=== PATIENT | female | born 1950 | race Caucasian/White ===

== ENCOUNTER 2019-11-20 10:30 | Emergency (ER) | payer MEDICARE, OTHER ==
[~2019-11-20] VITALS: Ht 165.1 cm; Wt 65.8 kg
--- OUTSIDE RECORDS SUMMARY | 2019-11-20 10:31 | XMS REPORT ---
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 Allergies, Adverse Reactions, Alerts This patient has no known allergies or adverse reactions. Medications This patient has no known medications. Encounters Start Date/Time End Date/Time Encounter Type Admission Type Attending Clinicians Care Facility Care Department Encounter ID 2019-01-28 15:51:12 Outpatient [id number] 2019-04-19 07:13:00 2019-04-19 07:13:00 Outpatient [facility] [id number] 2019-03-22 08:31:00 2019-03-22 08:31:00 Outpatient [id number]
--- OUTSIDE RECORDS SUMMARY | 2019-11-20 10:32 | XMS REPORT | Summary of Care ---
Author Author DAVID SKINNER M.D. Organization Unknown Address [facility] Phone Unavailable Care Team Providers Care Summer Intern Name Role Phone DAVID SKINNER M.D. Unavailable Unavailable Alma Ivan M.A. 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 Quantity: 14 DAVID SKINNER M.D. * Start : 06-Aug-2019 Active Fluticasone Propionate 50 MCG/ACT Nasal Suspension USE 2 SPRAYS IN EACH NOSTRIL ONCE DAILY * Quantity: 1 Refills: 6 DAVID SKINNER M.D. * Start : 06-Aug-2019 Active 9.9 ML Bottle Allergies and Adverse Reactions Name Dates Details Erythromycin Derivatives (Allergy) Status: Active Past Medical History Name Dates Details History of malignant neoplasm of breast (V10.3, Z85.3) Status: Resolved Procedures Procedure Dates Details History of Anastomosis Of Gallbladder Completed History of Sinus Surgery Completed Immunization Name Dates Details Immunizations not documented Family History Name Dates Details No pertinent family history (V49.89, Z78.9) Comments: Other Status: Active Social History Name Dates Details - Status: Name Dates Details Never smoker Vital Signs Date Test Result Details [id number] BP Systolic 116 mm[Hg] Status: BP Diastolic 78 mm[Hg] Status: Height 60 in Status: Weight 144.125 lb Status: Body Mass Index Calculated 28.15 kg/m2 Status: Body Surface Area Calculated 1.62 m2 Status: Heart Rate 86 /min Status: Results Date Description Value Details Results not documented Plan of Care Name Dates Details Planned Observations Planned Goals not documented Interventions Provided Medication Changes* levoFLOXacin 500 MG Oral Tablet - Renew Instructions Name Dates Details Instructions not documented Encounters Appointment; ELIDIA MALIK DPM Encounter Diagnosis: Problem not documented On: 22-Oct-2017 14:00 Appointment; DAVID SKINNER M.D. Encounter Diagnosis: Problem not documented On: 06-Aug-2019 14:45
[2019-11-20] MEDS ORDERED: ATENOLOL50 MG (10:43)
[2019-11-20] MEDS ORDERED: LOSARTAN POTAS100 MG PO (10:43)
[2019-11-20] MEDS ORDERED: HYDROCHLOROTHIA25 MG PO (10:43)
[2019-11-20] MEDS ORDERED: DEXAMETHASONE SOD PHOS 10 MG/1 ML VIAL IM ONE (10:45)
[2019-11-20] MEDS ORDERED: ACETAMINOPHEN 325 MG TAB PO ONE (10:45)
--- NOTE | 2019-11-20 11:20 | Diagnostic Imaging Report ---
LEFT KNEE X-RAY - 2 VIEWS HISTORY: ^acute pain, trauma ^[id number] ^[id number] COMPARISON: None available. FINDINGS: Bones: No acute displaced fracture. Osseous alignment is within normal limits. Joints: The joint spaces are well-maintained. Soft tissues: Mild fat stranding along the course of the lateral collateral ligament. IMPRESSION: Mild fat stranding within the lateral aspect of the knee may reflect edema or inflammation. Otherwise, no acute fractures. Signed by: Dr. Radha Jones M.D. on 11/20/2019 11:17 AM
== END 2019-11-20 11:38 | disposition home or self-care (01) ==
LOC: FSED 10:30
DX: S83.412A Sprain of medial collateral ligament of left knee, initial encounter (principal); X50.1XXA Overexertion from prolonged static or awkward postures, initial encounter; Y93.89 Activity, other specified; M17.12 Unilateral primary osteoarthritis, left knee
CPT/HCPCS: 73560; 99283; J1100

== ENCOUNTER 2021-02-14 16:00 | Outpatient (RCR) | payer MEDICARE ==
[~2021-02-14 16:00] MED LIST: ATENOLOL50 MG; HYDROCHLOROTHIA25 MG PO; LOSARTAN POTAS100 MG PO
== END 2021-02-21 ==
LOC: PT 16:00
PROVIDERS: ATTEND Specialist
DX: M22.41 Chondromalacia patellae, right knee (principal); M22.42 Chondromalacia patellae, left knee; M22.2X1 Patellofemoral disorders, right knee; M22.2X2 Patellofemoral disorders, left knee

== ENCOUNTER 2021-03-07 09:14 | Outpatient (RCR) | payer MEDICARE | END 2021-03-24 | LOC: PT 09:14 | PROVIDERS: ATTEND Specialist | DX: M22.41 Chondromalacia patellae, right knee (principal); M22.42 Chondromalacia patellae, left knee; M22.2X1 Patellofemoral disorders, right knee; M22.2X2 Patellofemoral disorders, left knee | CPT/HCPCS: 97139 ==

== ENCOUNTER 2022-09-08 12:46 | Emergency (ER) | payer MEDICARE ==
[~2022-09-08] VITALS: Ht 152.4 cm; Wt 64.4 kg
[2022-09-08] MEDS ORDERED: KETOROLAC TROMETHAMINE 30 MG/ML VIAL IM STA (13:34)
[2022-09-08] MEDS ORDERED: ACETAMINOPHEN-1 EAC4 PO ×2 (13:40→14:47)
[2022-09-08] MEDS ORDERED: IBUPROFEN600 MG PO ×2 (13:40→14:47)
[2022-09-08] MEDS ORDERED: KETOROLAC TROMETHAMINE 30 MG/ML VIAL ONE (14:00)
== END 2022-09-08 14:20 | disposition home or self-care (01) ==
LOC: EDBD 12:46 → FSED 13:28
DX: M25.562 Pain in left knee (principal); G89.29 Other chronic pain; I10 Essential (primary) hypertension; Z85.89 Personal history of malignant neoplasm of other organs and systems
CPT/HCPCS: 99282; J1885